=== PATIENT | male | born 1995 | race Caucasian/White ===

== ENCOUNTER 2017-07-30 01:45 | Emergency (ER) | payer BC ==
[~2017-07-30] VITALS: Ht 167.6 cm; Wt 52.9 kg
[~2017-07-30 01:45] MED LIST: NAPROSYN500 MG PO; PERCOCET 5/31 TABLET PO; PREDNISONE20 MG PO
[2017-07-30 02:24] LABS: HEMATOCRIT 46.3 % (38.0-50.0); MCH 28.8 PG (29.0-34.0); MCV 82.2 FL (86-99); MEAN PLAT.VOLUME 8.6 uM^3 (9.0-12.4); PLATELET COUNT 312 K/uL (156-360); RBC DIS.WIDTH-CV 11.7 % (11.8-14.6); RBC DIS.WIDTH-SD 34.6 % (39-53); RED BLOOD COUNT 5.63 M/uL (4.00-5.50); WHITE BLOOD COUNT 9.8 K/uL (4.1-10.2)
[2017-07-30 02:45] LABS: CHLORIDE 105 mEq/L (99-109); POTASSIUM 3.8 mEq/L (3.7-5.4); SODIUM 143 mEq/L (136-147)
[2017-07-30 02:46] LABS: GLUCOSE 86 mg/dL (70-99)
[2017-07-30 02:48] LABS: ANION GAP 11 MEQ/L (2-14)
[2017-07-30 02:50] LABS: GFR ESTIMATE (CALCULATED) > 59 mL/min/
[2017-07-30 02:51] LABS: UREA NITROGEN (BUN) 14 mg/dL (9-23)
[2017-07-30 02:56] LABS: TROP-I INTERPRETATION NEGATIVE; TROPONIN-I < 0.01 ng/mL (0.0-0.30)
[2017-07-30 04:57] LABS: D-DIMER ELISA < 150.00 ng/mLDDU (<230)
[2017-07-30 06:28] LABS: TROP-I INTERPRETATION NEGATIVE; TROPONIN-I < 0.01 ng/mL (0.0-0.30)
[2017-07-30 06:55] VITALS: BP 110/68
== END 2017-07-30 06:58 | disposition home or self-care (01) ==
LOC: EME 01:45
PROVIDERS: Emergency Medicine
DX: R07.89 Other chest pain (principal); J45.909 Unspecified asthma, uncomplicated; F17.200 Nicotine dependence, unspecified, uncomplicated
CPT/HCPCS: 71020; 80048; 84484; 85027; 85379; 93005; 99281; 99284